=== PATIENT | male | born 1950 | race Caucasian/White ===

== ENCOUNTER → 2023-07-26 10:18 | Outpatient (REF) | payer MEDICARE, SELFPAY | LOC: DHCBC MAIN 10:18 | PROVIDERS: ATTENDING PHYSICIAN Internal Medicine; FAMILY PHYSICIAN Physician Assistant | DX: R06.09 Other forms of dyspnea (principal) | CPT/HCPCS: 93306 ==

== ENCOUNTER → 2023-09-26 13:38 | Outpatient (REF) | payer MEDICARE, SELFPAY | LOC: HWRAD 13:38 | PROVIDERS: ATTENDING PHYSICIAN Allergy & Immunology; FAMILY PHYSICIAN Physician Assistant | DX: R05.9 Cough, unspecified (principal) | CPT/HCPCS: 71046 ==

== ENCOUNTER → 2024-02-07 06:27 | Day surgery (SDC) | payer MEDICARE, SELFPAY ==
[2024-02-07 07:55] LABS: Glucose - Point of Care 167 mg/dl (70-99)
== END ==
LOC: GI 06:27
PROVIDERS: ATTENDING PHYSICIAN Internal Medicine Gastroenterology
DX: Z12.11 Encounter for screening for malignant neoplasm of colon (principal); D12.3 Benign neoplasm of transverse colon; D12.2 Benign neoplasm of ascending colon; K63.5 Polyp of colon; K62.1 Rectal polyp; K44.9 Diaphragmatic hernia without obstruction or gangrene; K31.7 Polyp of stomach and duodenum; K29.50 Unspecified chronic gastritis without bleeding; K20.80 Other esophagitis without bleeding; Z86.0100 Personal history of colon polyps, unspecified
CPT/HCPCS: 45385; 45380; 43239; 88305; 82962; 88342

== ENCOUNTER 2024-08-03 23:41 | Inpatient (IN) | payer MEDICARE, SELFPAY ==
[2024-08-03 14:00] VITALS: BP 132/53
[2024-08-03 14:17] LABS: % Basophils 0.4 % (0-2); % Eosinophils 0.8 % (0-6); % Immature Granulocytes 0.6 % (0-0.5); % Lymphocytes 7.7 % (20.5-51.1); % Monocytes 11.3 % (1.7-9.3); % Neutrophils 79.2 % (42.2-75.2); Absolute Lymphocytes 0.4 10^3/uL (1.2-3.4); Absolute Monocytes 0.6 10^3/uL (0.1-0.6); Hemoglobin 11.5 g/dL (13.0-18.0); Mean Corp Hgb Conc. 37.1 g/dL (33.0-37.0); Mean Corpuscular Hgb 34.2 pg (27.0-31.0); Mean Corpuscular Volume 92.3 fL (80.0-94.0); Nucleated Red Blood Cells % 0 % (-); Platelet Count 111 10^3/uL (130-400); Red Blood Cell Count 3.36 10^6/uL (4.70-6.10); Red Cell Dist. Width 13.2 % (11.5-14.5); White Blood Cell Count 5.1 10^3/uL (4.8-10.8)
[2024-08-03 14:31] LABS: ALT (SGPT) 19 U/L (0-50); AST (SGOT) 30 U/L (17-59); Albumin 4.1 g/dl (3.5-5.0); Alkaline Phosphatase 42 U/L (38-126); Blood Urea Nitrogen 15 mg/dl (9-20); Carbon Dioxide 29 mmol/L (22-30); Chloride 95 mmol/L (98-107); Glucose 174 mg/dl (70-99); Lipase 90 U/L (23-300); Potassium 3.6 mmol/L (3.5-5.1); Sodium 132 mmol/L (135-145); Total Bilirubin 1.2 mg/dl (0.2-1.3); Total Protein 5.9 g/dl (6.3-8.2); eGFR > 60.00
--- NOTE | 2024-08-03 19:34 | ED.GENMED ---
History of Present Illness
General
Chief Complaint: Abdominal Symptoms
Source: patient
Exam Limitations: none
Time Seen by Provider: 08/03/24 18:35
Nursing documentation reviewed up to this point in time: agreed with
History of Present Illness
History of Present Illness:
Patient is a 73-year-old male with history asthma, hypertension presenting to the emergency department with abdominal pain and fever x 3 days. Patient states that onset of fever and abdominal pain was Saturday night and has been relatively persistent
since. He reports temperatures ranging from 100-104 throughout the weekend. He also reports a gnawing pain in his upper abdomen. Patient feels generally unwell and very tired. He denies any headache, sore throat, cough, or other URI symptoms.
He denies any vomiting, diarrhea/constipation, or urinary symptoms. He denies any chest pain or shortness of breath. He denies any known bug bites or rashes. He has no known sick contacts.
Patient was seen by his primary care provider today where he was referred to the emergency department for further evaluation. He was reportedly negative for both COVID and influenza at his primary care office today.
Patient reports he does have a history of a gastric ulcer and acid reflux and has been taking Celebrex recently for spinal stenosis.
Review of Systems
Review of Systems
Allergies reviewed?: Yes
All Other Systems: ROS reviewed and negative except as documented in HPI and ROS
Phy Exam
Physical Exam
Physical Exam:
Vitals: Patient's vital signs are stable. Temp 99.1
General: Patient is in no apparent distress
Skin: Warm and dry, no rashes or lesions
Head: Normocephalic, atraumatic
Eyes: Sclera nonicteric.
Throat: Protecting airway
Neck: Normal ROM, no cervical spine tenderness, no meningismus
Cardiac: Regular rate and rhythm, no murmurs.
Pulm: Normal respiratory effort, no wheezes, rales, rhonchi heard on exam.
Abdomen: Abdomen soft. Mild tenderness in epigastric region without rebound tenderness or guarding.
Extremities: No evidence of cyanosis or edema. Palpable DP pulses bilaterally
Neuro: AAOx3. Grossly intact.
Psychiatric: Normal affect.
Course
Orders/Labs/Results
Orders:
Orders
08/03/24 14:04
Electrocardiogram (*1) Urgent
Reason for Study: Abdominal Pain
08/03/24 14:05
EKG- Treatment ONCE
08/03/24 14:10
Complete Blood Count/With Diff Urgent
Comprehensive Metabolic Panel Urgent
Lipase Urgent
08/03/24 18:53
0.9% Sodium Chloride 500 ml [Nss] 500 ml IV BOLUS
08/03/24 18:54
CT Abd/pelvis W Iv Cont Urgent
Comment:
Reason For Exam: fever, abdominal pain
Acetaminophen [Tylenol] 650 mg PO NOW STA
CR Chest - 2 Views Urgent
Comment:
Reason For Exam: fever
08/03/24 20:04
Lactic Acid Q4H
Comment: CANCEL 2nd LACTIC ACID IF 1st LACTIC ACID IS LESS THAN 2
Lyme Progressive Urgent
Urinalysis Reflex To Culture Urgent
Date Specimen was Collected: 08/03/24
Time Specimen was Collected: 19:08
Urine Microscopic Reflex Cult Urgent
Blood Culture Q30M
JOANNA Source: Blood/Venous
Specimen Description:
Blood Culture Q30M
JOANNA Source: Blood/Venous
Specimen Description:
08/03/24 23:03
Add On - Microbiology Urgent
Tests Added?: urine culture
08/03/24 23:14
COVID-19 Antigen Stat
Source: Nasal Swab
Influenza A+B Rapid Molecular Stat
JOANNA Source: Nasal Swab
Specimen Description:
08/03/24 23:30
Admit/Transfer Patient As Directed
Co-Sign Provider:
Level of Care: Inpatient admission
Assign to:: Medical/Surgical
Physician / Group: CARMELO
Diagnosis: FEVER
Reason for Hospitalization: FEVER
Expected length of stay greater than two midnights?: Yes
ELOS- Estimated Length of Stay in days: 3
I certify the patient meets the requirements for IP care: Yes
08/03/24 23:31
Code Status As Directed
Resuscitation Status: Full Code
PRN Pain Medication Management As Directed
May give lesser potent ordered pain med per pt: Yes
preference::
Protocol:: Medication orders for pain may be administered in a
manner that supports deferring to patient preference
when the pt is:
- Requesting an ordered lesser potent pain medication.
Least to most potent pain medications are defined
as: acetaminophen < NSAID < tramadol < opioids
(morphine, oxycodone, hydromorphone).
- Requesting a lesser dose of the same medication IF
ORDERED.
- Requesting a less intrusive route of administration
if both routes are prescribed by the provider (PO <
IV).
08/04/24 00:39
Acetaminophen [Tylenol] 650 mg PO Q4HPRN PRN
Bisacodyl [Dulcolax] 10 mg RECTAL [id number] PRN
Dextrose 50%-Water [Dextrose 50% Syringe] 12.5 grams IV [id number] PRN
Docusate W/Senna [Senokot-S] 1 tablet PO BIDPRN PRN
Glucagon [GlucaGen] 1 mg IM PRN PRN
HydrALAZINE [Apresoline] 10 mg IV Q4HPRN PRN
Polyethylene Glycol Powder [Miralax] 17 grams PO DAILYPRN PRN
VANCOMYCIN Pharmacy to Dose [VANCOCIN Pharmacy to Dose] 1 each Pharmacy To Prepare [Call Pharmacy To Prepare] 0 ml IV PER PROTOCOL
08/04/24 00:39
Activity As Directed
Activity Level: As Tolerated
Bedside Glucose Monitoring As Directed
Frequency: AC&HS
Additional Instructions:: Change to q6h if pt on TPN, tube feeding or not eating
Vital Signs As Directed
Frequency: Per unit guidelines
DX Deep Vein Thrombosis Video Routine
08/04/24 Breakfast
1800 calorie (15 carb) Diabetic
Basic Metabolic Panel IN AM
Complete Blood Count/No Diff IN AM
Glycohemoglobin (HgbA1c) IN AM
08/04/24 07:30
Insulin Aspart Corrective Low [Novolog Flexpen-Low Resistance] See Protocol SC AC
08/04/24 14:00
LevoFLOXacin 500 MG/100 ML [Levaquin] 500 mg in 100 ml IV Q24H
08/04/24 18:00
Enoxaparin Sodium [Lovenox] 40 mg SC QPM
08/05/24 06:00
Basic Metabolic Panel IN AM
Complete Blood Count/No Diff IN AM
08/06/24 06:00
Complete Blood Count/No Diff IN AM
Abnormal Lab Results
08/03/24 08/03/24
14:10 20:04
RBC 3.36 L 10^6/uL
(4.70-6.10)
Hgb 11.5 L g/dL
(13.0-18.0)
Hct 31.0 L %
(39.0-52.0)
MCH 34.2 H pg
(27.0-31.0)
MCHC 37.1 H g/dL
(33.0-37.0)
Plt Count 111 L 10^3/uL
(130-400)
Absolute Lymphs (auto) 0.4 L 10^3/uL
(1.2-3.4)
Immature Gran % 0.6 H %
(0-0.5)
Neutrophils % 79.2 H %
(42.2-75.2)
Lymphocytes % 7.7 L %
(20.5-51.1)
Monocytes % 11.3 H %
(1.7-9.3)
Sodium 132 L mmol/L
(135-145)
Chloride 95 L mmol/L
(98-107)
Glucose 174 H mg/dl
(70-99)
Total Protein 5.9 L g/dl
(6.3-8.2)
Urine Ketones 1+ A
(Negative)
Urine Albumin (Reflex) 1+ A
(Neg - Trace)
08/03/24 14:10
08/03/24 14:10
Vital Signs
Initial and Last Documented VS:
Initial Vital Signs
Temp Pulse Resp BP Pulse Ox
99.1 F 73 16 132/53 98
08/03/24 14:00 08/03/24 14:00 08/03/24 14:00 08/03/24 14:00 08/03/24 14:00
Last Documented Vital Signs
Temp Pulse Resp BP Pulse Ox
99.1 F 78 16 170/62 98
08/03/24 14:00 08/04/24 00:25 08/04/24 00:25 08/03/24 22:00 08/04/24 00:25
MDM/Problems Addressed
Differential Diagnosis Includes:
Not limited to: Viral illness, cystitis, pyelonephritis, bacteremia, pancreatitis, etc.
MDM/Problems Addressed:
73-year-old male presenting with fever of unknown origin and abdominal pain for 3 days. No vomiting, cough, diarrhea, urinary symptoms. No recent rashes or bug bites. Vital stable with temp of 99.1 F here. Physical exam as above. Patient in no
apparent distress. Heart regular rate and rhythm. His lungs are clear bilaterally. Abdomen is soft with mild tenderness in epigastric region. Otherwise exam unremarkable. Differential broad. Apparently viral studies negative at PCP office.
Will check labs, urine. Will send Lyme. Will check blood cultures. Will obtain chest x-ray and abdominal CT. Tylenol and fluids. Will closely monitor and reassess.
Update: CBC significant for mild anemia and thrombocytopenia. Chemistry without acute abnormalities. CT scan shows findings of possible cystitis/signs of ascending UTI although urinalysis shows no evidence of infection. Ultimately�workup in
emergency department negative. Patient remained stable and afebrile. However�given age, history of very elevated temperature, and possible findings of cystitis on CT scan�offered patient admission for IV antibiotics pending blood and urine
cultures. Will start patient on IV ciprofloxacin given Ceftin allergy to cover for possible UTI. Patient accepted to hospital service in stable condition. Case discussed with attending physician.
Chronic conditions affecting care:
Hypertension
Acute Exacerbation and/or Progression of Chronic Illness:
Acutely hypertensive
*Radiology
Radiology exam reviewed: preliminary read by ED provider (Chest x-ray reviewed by me-no acute abnormality) and radiology read reviewed
*Pulse Oximetry
Patient hypoxic: no
*EKG
Interpreted by ED Provider?: Yes
EKG Intrepretation Date: 08/03/24
Interpretation: normal
Comparison EKG: no comparison EKG present
Heart Rate: 69
Rate: normal
Rhythm: sinus
Carpenter: normal axis
Interval: normal QT interval
QRS Pattern: normal QRS
Ischemia: no ischemia
*Returner Interpretation
Rate: normal
Interpretation: normal
Heart Rate: 76
Rhythm: sinus
*Critical Care Note
Total Time (30-74mins, 75-104mins- exclusive of procedures): Not Applicable
Patient Management
Discussion with other providers: Hospitalist
Escalation/DeEscalation of care consider admission/obs:
Admit for IV antibiotics pending urine and blood cultures
ED Attending Note
-
Portions of this chart may have been created with voice recognition software.� Occasional wrong word or��sound alike� substitutions may have occurred due to the inherent limitations of voice recognition software.
Discharge Plan
Departure
Patient Disposition: Admit
Date of Disposition: 08/03/24
Time of Disposition: 23:02
Presentation/result/management discussed w/ accepting MD/DO: Hospitalist
Discharge Problem:
Fever of unknown origin (FUO), Abdominal pain
Interventions
Interventions:
*Risk Screen - Suicide Last Done: 08/03/24 14:03
*General Assessment Last Done: 08/03/24 20:03
*Neglect/Abuse Screening Last Done: 08/03/24 14:03
*ED- Fall Risk Assessment Last Done: 08/03/24 20:03
*ED COVID-19 Vaccine History Last Done: 08/03/24 20:03
FI-Qhcluq-Jehkkucbwi Assessment Last Done: 08/04/24 00:21
[2024-08-03 20:03] VITALS: BMI 31.5
[2024-08-03] MEDS: TYLENOL 650 MG PO (20:10)
[2024-08-03] MEDS: NSS 500 IV (20:10)
[2024-08-03 20:20] VITALS: BP 183/84
[2024-08-03 20:44] LABS: Lactic Acid 0.9 mmol/L (0.7-2.0)
[2024-08-03 21:36] VITALS: BP 188/76
[2024-08-03 21:55] LABS: Urine Albumin 1+ (Neg - Trace); Urine Bilirubin Negative (Negative); Urine Character Clear (Clear); Urine Color Yellow; Urine Glucose Negative (Negative); Urine Ketone 1+ (Negative); Urine Leukocyte Negative (Negative); Urine Nitrite Negative (Negative); Urine Occult Blood Negative (Negative); Urine Specific Gravity 1.005 (<1.030); Urine Urobilinogen Negative (Neg - 1+)
[2024-08-03 22:00] VITALS: BP 170/62
[2024-08-03 22:24] LABS: Urine Red Blood Cell 0-2 /HPF (0-2); Urine Squamous Cell 0-2 /LPF (Few); Urine White Cell 0-2 /HPF (0-5)
--- NOTE | 2024-08-03 23:08 | HPS.HSE ---
Family Physician
-
Family Physician: Moreno Mahmood
Chief Complaint
-
fever
History of Present Illness
73-year-old with past medical history for hypertension, hyperlipidemia, type 2 diabetes, asthma presented to us with fever since Saturday night. Patient had a temp of 100.4 on Saturday, Saturday, Saturday night. Patient was taking Advil. His fever
persisted somewhere between 100-101. Patient stated some headache. denied chills. denied chest pain, sob, congestion. denied n/v/d. denied dysuria or hematuria.
UA negative. Chest x-ray with no acute disease. CT with impression of Mild diffuse thickening of the urinary bladder wall and mild urinary bladder distention (either cystitis or chronic urinary bladder outlet obstruction).
2. Mild retroperitoneal edema around the ureters which could be secondary to ascending urinary tract infection. Patient received Tylenol, Cipro, normal saline and. Blood culture sent from ER. Admitted for further manage
Medical History
Past Medical History
Past Medical History: Reports Other
Additional Past Medical History:
HTN
DM peripheral neuropathy
glaucoma
type 2 DM
hyperlipidemia
asthma
depression
DAISY
AVM
Chavarria esophagus
anemia
GERD
Past Surgical History: Reports Other
Additional Past Surgical History:
cholecystectomy
Social History
Tobacco: Non-smoker
Alcohol: Daily (2 glasses of wine)
Drug: None
Personal:
Living: With Family
Family History
Family History: Not pertinent
Allergies / Home Medications
Allergies reflects when Allergies were last updated in [employer].
Home Medications with original date entered in [employer]
Allergy/Medication List:
Allergies
Allergy/AdvReac Type Severity Reaction Status Date / Time
cefuroxime [From Ceftin] Allergy Unknown Verified 08/03/24 14:04
Review of Systems
-
Constitutional: Reports Fever
EENT: Reports No Symptoms
Respiratory: Reports No Symptoms
Cardiac: Reports No Symptoms
Abdomen/GI: Reports Abdominal Pain
: Reports No Symptoms
Musculoskeletal: Reports No Symptoms
Skin: Reports No Symptoms
Neurological: Reports No Symptoms
Endocrine: Reports No Symptoms
Hematologic/Lymphatic: Reports No Symptoms
Psych: Reports No Symptoms
Physical Exam
Vital Signs
Vital Signs
Temp Pulse Resp BP Pulse Ox
99.1 F 66 19 170/62 97
08/03/24 14:00 08/03/24 22:15 08/03/24 22:00 08/03/24 22:00 08/03/24 22:15
Physical Exam
General: Well Developed, Well Nourished and No Apparent Distress
HEENT: NormoCephalic, Moist mucous membranes and Atraumatic
Respiratory: Clear
Cardiac: S1/S2 and Regular Rhythm; No Murmur or Rub
GI: Soft, Non Tender, Non Distended and Normal Bowel Sounds; No Organomegaly
Rectal: Deferred by Provider
Musculoskeletal: No Clubbing, No Cyanosis and No Edema
Skin: No Rash
Neuro: AO x 3 and Nonfocal/grossly intact
Psych: Calm
Laboratory Results
-
08/03/24 14:10
08/03/24 14:10
Laboratory Results
Lactic Acid Cancelled 08/03/24 23:00
Total Bilirubin 1.2 mg/dl (0.2-1.3) 08/03/24 14:10
AST 30 U/L (17-59) 08/03/24 14:10
ALT 19 U/L (0-50) 08/03/24 14:10
Alkaline Phosphatase 42 U/L (38-126) 08/03/24 14:10
Lipase 90 U/L (23-300) 08/03/24 14:10
Data Reviewed
-
Diagnostic Radiology: Report Reviewed by me
CT Scan: Report Reviewed by me
Lab Data: Labs Reviewed by me
Impression/Plan
-
#fever unclear origin
-chest x ray negative
-obtain COVID and FLU
-blood culture sent from ER
-UA negative
-lyme test pending
-iv vanco and Levaquin
#abdominal pain unclear cause
-CT abdomen pelvis with the impression of Mild diffuse thickening of the urinary bladder wall and mild urinary bladder distention (either cystitis or chronic urinary bladder outlet obstruction).
2. Mild retroperitoneal edema around the ureters which could be secondary to ascending urinary tract infection.
3. Minimal ascites.
4. Mild to moderate diffuse hepatic steatosis.
5. Mild hepatomegaly.
6. Moderate splenomegaly.
7. Previous cholecystectomy.
8. Mild to moderate colonic diverticulosis.
9. Severe discogenic degenerative disease at L3/L4.
10. Severe bilateral facet joint arthrosis at L5/S1.
-patient denied any UA symptoms
-CTM
#hyponatremia likely pseudo in the setting of hyperglycemia
-na 132, corrected sodium is 134
-ctm
# Essential hypertension
- Patient is on hydralazine, Coreg, valsartan and terazosin as outpatient but he does not remember the dosage
- to call when she gets home
-will add hydralazine meanwhile.
# Hyperlipidemia
- On Zetia and atorvastatin
#TYPE 2 dm
-Hold metformin
-sliding scale
-CHO diet
# DVT prophylaxis
- Lovenox subcu
# CODE STATUS
- full code
--- NOTE | 2024-08-03 23:46 | W.PN.UPDATE ---
Update Note
Progress Note Update
This is an addendum to the H&P written by Chelsie Valadez on 08/03/2024. Patient seen and examined independently with [facility].
73-year-old male past medical history of diabetes, hypertension, hyperlipidemia, asthma, depression, anemia, GERD, spinal stenosis, presenting with fever since 3 days with abdominal pain. Some generalized joint pains. No vomiting or diarrhea or
change in bowel movements. No urinary symptoms or flank pain. No external hardware.
Labs unremarkable apart from mild thrombocytopenia. Monocytes are elevated.
Urinalysis normal. Chest x-ray unremarkable. CT abdomen shows mild diffuse thickening of the urinary bladder wall and mild urinary bladder distention, mild retroperitoneal edema around the ureters suggestive of ascending urinary tract infection,
minimal ascites, mild to moderate diffuse hepatic steatosis, mild hepatomegaly, moderate splenomegaly.
Fever of unknown etiology. Patient with abdominal pain with CT scan suggesting urinary tract infection although urinalysis negative. Unclear if patient has a chronic bacterial infection or hematologic source of fever that could explain
splenomegaly since unlikely patient would have cirrhosis.
Lyme's testing pending. Blood cultures pending. Vancomycin/Levaquin for now. Consider ID.
[2024-08-03 23:49] VITALS: BP 192/75
[2024-08-04] VITALS (14 sets, daily range): BP systolic 151–185; BP diastolic 59–97; BMI 30.6
[2024-08-04] MEDS: CIPRO 400 MG 200 IV (00:56)
[2024-08-04 01:20] LABS: COVID-19 Antigen Negative (Negative)
[2024-08-04] MEDS: VANCOCIN 540 MG IV (01:57)
[2024-08-04 06:41] LABS: Blood Urea Nitrogen 10 mg/dl (9-20); Calcium 8.7 mg/dl (8.4-10.2); Carbon Dioxide 30 mmol/L (22-30); Chloride 99 mmol/L (98-107); Estimated Creatinine Clearance 89 ml/min; Glucose 128 mg/dl (70-99); Potassium 3.3 mmol/L (3.5-5.1); Sodium 135 mmol/L (135-145); eGFR > 60.00
[2024-08-04 08:08] LABS: Glucose - Point of Care 143 mg/dl (70-99)
--- NOTE | 2024-08-04 08:28 | PHA.VAN.IN ---
Assessment
- Assessment
Renal Function: Appears similar to baseline
Concomitant Antimicrobials: levofloxacin
AUC Dosing Plan
- Dosing Variables
Dosing Weight (kg): 91
Dosing CrCl (ml/min): 89
Vd coefficient (L/kg): 0.7
- Empiric Dosing
Initial / Loading Dose: 2000mg - 5/6 01:57
Maintenance Regimen: Vanc 1000mg Q12H starting at 1800
Estimated AUC (mcg*h/mL): 454
Estimated Peak (mcg*h/mL): 27.2
Estimated Trough (mcg/ml): 12.4
Estimated Half Life (H): 9.7
- Monitoring
No levels ordered at this time: consider levels in next few days
Pharmacokinetics Vancomycin I
- -
Patient Age: 73
Patient Sex: Male
Vancomycin Day #: 1
Indication: Other
Requesting Provider: Susan Valadez
Pertinent Antimicrobial Allergies:
cefuroxime - unknown
Height / Weight:
Height 5 ft 7 in
Actual Weight 91.2 kg
Pertinent Past Medical History: BMI ~31.5, DM 2
- Vital Signs / Lab Results
Temp Pulse Resp BP Pulse Ox
97.9 F 64 16 169/80 97
08/04/24 07:00 08/04/24 06:30 08/04/24 06:30 08/04/24 06:30 08/04/24 06:30
Lab Results - Hematology
08/03/24
14:10
WBC 5.1
Lab Results - Chemistry
08/03/24 08/04/24
14:10 06:00
BUN 15 10
Creatinine 0.9 0.8
Estimated Creat Clear 89
Albumin 4.1
08/03/24 08/03/24
20:04 23:00
Lactic Acid 0.9 Cancelled
Lab Results - Urine
08/03/24
20:04
Urine Nitrite (Reflex) Negative
Leukocyte Esterase Rfl Negative
Urine WBC (Reflex) 0-2
Ur Squamous Epith Cells 0-2
Microbiology Results
08/04/24 00:35 Influenza Types A & B ([facility]) - Final
Nasal Swab Negative for Influenza A & B, NAAT
Negative results must be combined with clinical observations
and patient history.
Nucleic Acid Amplification test (NAAT)performed on the
[employer] platform.
[2024-08-04] MEDS: NOVOLOG FLEXPEN-LOW RESISTANCE SC ×3 (08:48→17:31)
[2024-08-04 08:58] LABS: Hematocrit 28.9 % (39.0-52.0); Hemoglobin 10.8 g/dL (13.0-18.0); Mean Corp Hgb Conc. 37.4 g/dL (33.0-37.0); Mean Corpuscular Volume 90.9 fL (80.0-94.0); Mean Platelet Volume 10.2 fL (7.4-10.4); Platelet Count 97 10^3/uL (130-400); Red Blood Cell Count 3.18 10^6/uL (4.70-6.10); Red Cell Dist. Width 13.2 % (11.5-14.5); White Blood Cell Count 3.2 10^3/uL (4.8-10.8)
[2024-08-04 10:01] LABS: % Basophils 0.6 % (0-2); % Eosinophils 3.1 % (0-6); % Immature Granulocytes 0.6 % (0-0.5); % Lymphocytes 13.8 % (20.5-51.1); % Monocytes 19.3 % (1.7-9.3); % Neutrophils 62.6 % (42.2-75.2); Absolute Eosinophils 0.1 10^3/uL (0-0.7); Absolute Lymphocytes 0.5 10^3/uL (1.2-3.4); Absolute Monocytes 0.6 10^3/uL (0.1-0.6); Absolute Neutrophils 2.1 10^3/uL (1.4-6.5)
[2024-08-04 10:02] LABS: Nucleated Red Blood Cells % 0 % (-)
[2024-08-04 11:55] LABS: Hepatitis A Antibody, Total Negative (Negative); Hepatitis B Core Ab, Total Negative (Negative); Hepatitis B Surface Antibody Negative
[2024-08-04 12:08] LABS: Folate > 20.0 ng/ml (2.76-20); Vitamin B12 710 pg/ml (239-931)
[2024-08-04] MEDS: APRESOLINE 10 MG IV (12:17)
--- NOTE | 2024-08-04 12:50 | W.PN.HOSP.TC ---
Today's Communication/Plan
-
Assessment / Plan
Assessment / Plan
NAD
Scleral Anicteric
MMM
No JVD
CTABL
RRR, S1/S2
Soft, NT, ND, BS+, protuberant abdomen
Warm, Dry
AAOx3
Calm
Fever, unclear etiology, unable to identify source, no further fevers though on antibiotics.
Could be infectious being bacterial versus viral. Blood cultures urine culture pending.
Flu negative. COVID-negative
Could be something more insidious process such as hematologic malignancy as he is thrombocytopenic and splenomegaly though there is evidence of hepatic steatosis with mild ascites.
Follows with outpatient key cutter unclear as to why states for anemia however then tells me he may require IVIG
Bicytopenia with normocytic anemia and thrombocytopenia
Do not have outpatient labs to review to see if this is an acute finding or chronic
Check peripheral smear, B12 folate hep C
No evidence of a protein gap to suspect multiple myeloma however this does not rule out MGUS in a patient who is older than 65 with bicytopenia
Hepatic steatosis with splenomegaly
Outpatient GI follow-up would likely benefit from FibroSure study
Diabetes
Accu-Chek sliding scale hold metformin carb controlled diet goal blood glucose 140-180
Hypertension
Continue antihypertensive
BPH
Continue terazosin
Asthma
Continue montelukast and inhalers
Hyperlipidemia
Continue Zetia statin
Anticipated Discharge: 24 - 48 hours
Subjective/Interval History
-
Date of Service: August 04, 2024
Seen and examined. No new complaints. No acute overnight events.
No further fevers reported
Questioning morning medication
Objective Data
-
Labs:
Laboratory Results
08/04/24 08/04/24
06:00 06:01
WBC 3.2 L
Hgb 10.8 L
Hct 28.9 L
Plt Count 97 L
Sodium 135
Potassium 3.3 L
Chloride 99
Carbon Dioxide 30
BUN 10
Creatinine 0.8
Glucose 128 H
Calcium 8.7
Vital Signs:
Vital Signs
Temp Pulse Resp BP Pulse Ox
98.5 F 68 15 179/81 97
08/04/24 11:00 08/04/24 11:15 08/04/24 11:15 08/04/24 11:13 08/04/24 11:15
[2024-08-04 12:59] LABS: Glucose - Point of Care 187 mg/dl (70-99)
[2024-08-04] MEDS: NORVASC 10 MG PO (13:02)
--- NOTE | 2024-08-04 13:10 | PTCARENOTE ---
Received patient from ED at 1310. Patient AAOx3, ambulated from stretcher to bed with cane and a steady gait.
[2024-08-04] MEDS: LEVAQUIN 100 IV (14:37)
[2024-08-04] MEDS: DIOVAN 320 MG PO (14:37)
[2024-08-04] MEDS: HYTRIN 10 MG PO (14:50)
[2024-08-04] MEDS: ORETIC 25 MG PO (14:50)
--- NOTE | 2024-08-04 15:18 | CON.ONC ---
Impression
Impression
Chronic pancytopenia, followed by hematology on a yearly basis
Admission for fever, unclear etiology
Mild splenomegaly on CT scan
'Fatty liver' seen on CT scan
Thickening of bladder and ureters seen on CT scan
Diabetes
Plan
Plan
His pancytopenia appears stable. It would be reasonable for him to follow-up with his behavioral scientist again next year.
I am concerned about 'fatty liver'. He was told quite a few years ago that his liver appeared fatty when his gallbladder was removed. However, this does have the potential to progress to cirrhosis. I have recommended that he see a liver
specialist. Some preliminary studies suggest that the Ozempic type drugs may be of benefit. The spleen is also mildly enlarged, which could account for some of his pancytopenia.
His collecting system is also abnormal by CT scan. I have recommended that he see a urologist.
In looking at the entire CT report, he seems to have a little bit of edema in many places within the abdomen and pelvis. In addition, his eyeballs strike me as being a little edematous. I do not think he is hypothyroid, but I will check studies.
Patient History
History of Present Illness
Consult from hospitalist service regarding pancytopenia
This 73-year-old man was admitted with fever. Over the weekend his temperature was as high as 104 degrees. He ultimately came to the emergency room and has been placed on empiric antibiotics. However, cultures remain negative. Indeed, his
urinalysis looks quite clean. CT scan shows many mild abnormalities including possible fatty liver, mild splenomegaly, thickened wall of the stomach and duodenum, thickened ureters, thickened bladder wall, and small amount of pelvic ascites. He
also has a mild pancytopenia, but has been followed by Dr. Curtis for several years now with no real change in his counts.
Past-Medical/Surgical History
As per problem list below.
Social history: He says he has 2 glasses of wine at night. He does not smoke.
Family history is noncontributory.
Patient Medication
�Medication �Instructions �Recorded �Confirmed �Last Taken �Type
acetaminophen 325 mg tablet 650 mg PO Q6HPRN PRN mild pain 08/04/24 08/04/24 08/03/24 History
(Tylenol)
amlodipine 10 mg tablet 10 mg PO DAILY 08/04/24 08/04/24 08/03/24 History
ascorbic acid (vitamin C) 500 mg 500 mg PO DAILY 08/04/24 08/04/24 08/03/24 History
tablet (Vitamin C)
atorvastatin 20 mg tablet 20 mg PO HS 08/04/24 08/04/24 08/02/24 History
budesonide-formoterol HFA 160 2 puff inhalation R BID 08/04/24 08/04/24 08/03/24 History
mcg-4.5 mcg/actuation aerosol
inhaler (Symbicort)
calcium 500 mg (as 1 tab PO DAILY 08/04/24 08/04/24 08/03/24 History
carbonate)-vitamin D3 10 mcg (400
unit) tablet (Calcium 500 + D)
carvedilol 25 mg tablet 25 mg PO BID 08/04/24 08/04/24 08/03/24 History
celecoxib 200 mg capsule (Celebrex) 200 mg PO DAILYPRN PRN mild pain 08/04/24 08/04/24 07/31/24 History
ezetimibe 10 mg tablet (Zetia) 10 mg PO HS 08/04/24 08/04/24 08/02/24 History
hydralazine 100 mg tablet 100 mg PO TID 08/04/24 08/04/24 08/03/24 History
ibuprofen 200 mg tablet (Advil) 400 mg PO Q8HPRN PRN fever 08/04/24 08/04/24 08/02/24 History
metformin 500 mg tablet 500 mg PO BID 08/04/24 08/04/24 08/03/24 History
montelukast 10 mg tablet 10 mg PO HS 08/04/24 08/04/24 08/02/24 History
omega 4-zsj-rvq-fish oil 1,000 mg 1 cap PO DAILY 08/04/24 08/04/24 08/03/24 History
(120 mg-180 mg) capsule (Fish Oil)
omeprazole 20 mg tablet,delayed 20 mg PO DAILY 08/04/24 08/04/24 08/03/24 History
release
sertraline 100 mg tablet 200 mg PO DAILY 08/04/24 08/04/24 08/03/24 History
terazosin 10 mg capsule 10 mg PO DAILY 08/04/24 08/04/24 08/03/24 History
therapeutic multivitamin 1 tab PO DAILY 08/04/24 08/04/24 08/03/24 History
valsartan 320 1 tab PO DAILY 08/04/24 08/04/24 08/03/24 History
mg-hydrochlorothiazide 25 mg tablet
Active Medications
Generic Name Dose Route Start Last Admin
Trade Name Freq PRN Reason Stop Dose Admin
Acetaminophen 650 mg 08/04/24 00:39
Acetaminophen 325 Mg Tablet PO 09/01/24 00:38
Q4HPRN PRN
mild pain/LIRIANO/temp> 100.4F
Amlodipine Besylate 10 mg 08/04/24 12:00 08/04/24 13:02
Amlodipine 10 Mg Tablet PO 09/01/24 11:59 10 mg
DAILY ESTEE Administration
Atorvastatin Calcium 20 mg 08/04/24 22:00
Atorvastatin (Lipitor) 20 Mg Tablet PO 09/01/24 21:59
HS ESTEE
Bisacodyl 10 mg 08/04/24 00:39
Bisacodyl 10 Mg Rectal Suppository RECTAL 09/01/24 00:38
[id number] PRN
constipation
Carvedilol 25 mg 08/04/24 20:00
Carvedilol 25 Mg Tablet PO 09/01/24 19:59
BID ESTEE
Dextrose 12.5 grams 08/04/24 00:39
Dextrose 50% (0.5 Grams/Ml) 50 Ml Syringe IV 09/01/24 00:38
[id number] PRN
hypoglycemia
Protocol
Enoxaparin Sodium 40 mg 08/04/24 18:00
Enoxaparin Sodium 40 Mg/0.4 Ml Syringe SC 09/01/24 17:59
QPM ESTEE
Glucagon 1 mg 08/04/24 00:39
Glucagon 1 Mg Vial IM 09/01/24 00:38
PRN PRN
hypoglycemia
Protocol
Hydralazine HCl 10 mg 08/04/24 00:39 08/04/24 12:17
Hydralazine 20 Mg/Ml Vial IV 09/01/24 00:38 10 mg
Q4HPRN PRN Administration
hypertension
Hydralazine HCl 100 mg 08/04/24 16:00
Hydralazine 50 Mg Tablet PO 09/01/24 15:59
TID ESTEE
Hydrochlorothiazide 25 mg 08/04/24 14:00 08/04/24 14:50
Hydrochlorothiazide 25 Mg Tablet PO 09/01/24 13:59 25 mg
DAILY ESTEE Administration
Levofloxacin/Dextrose 500 mg in 100 mls @ 100 mls/hr 08/04/24 14:00 08/04/24 14:37
Levaquin IV 100 mls
Q24H ESTEE Administration
Vancomycin HCl 1 gram in 200 mls @ 200 mls/hr 08/04/24 18:00
Vancocin IV
Q12H ESTEE
Protocol
Insulin Aspart 0 units 08/04/24 07:30 08/04/24 13:03
Insulin Aspart Low Resistance 300 Units/3 Ml Pen.Injctr SC 09/01/24 07:29 Not Given
AC ESTEE
Protocol
Polyethylene Glycol 17 grams 08/04/24 00:39
Polyethylene Glycol Powder 17 Grams Packet PO 09/01/24 00:38
DAILYPRN PRN
constipation
Senna/Docusate Sodium 1 tablet 08/04/24 00:39
Docusate W/Senna (Gunjan-Colace) Tablet PO 09/01/24 00:38
BIDPRN PRN
constipation
Sodium Chloride 0 flush 08/04/24 01:00
Sodium Chloride 0.9% (Flush) Syringe IV 09/01/24 00:59
PER PROTOCOL ESTEE
Terazosin HCl 10 mg 08/04/24 14:00 08/04/24 14:50
Terazosin 5 Mg Capsule PO 09/01/24 13:59 10 mg
DAILY ESTEE Administration
Valsartan 320 mg 08/04/24 14:00 08/04/24 14:37
Valsartan 160 Mg Tablet PO 09/01/24 13:59 320 mg
DAILY ESTEE Administration
Review of Systems
-
All Other Systems: Reviewed and Negative
Physical Exam
-
Physical examination shows the patient to be in no acute distress.
HEENT exam is unremarkable with the exception of some conjunctival edema.
There are no palpable nodes.
Chest is clear.
The heart is regular with a soft systolic murmur.
The abdomen is soft and nontender with no organomegaly or masses.
Extremities are unremarkable.
Neurologic is grossly intact.
Labs
Lab Results
WBC 3.2 10^3/uL (4.8-10.8) L 08/04/24 06:01
RBC 3.18 10^6/uL (4.70-6.10) L 08/04/24 06:01
Hgb 10.8 g/dL (13.0-18.0) L 08/04/24 06:01
Hct 28.9 % (39.0-52.0) L 08/04/24 06:01
MCV 90.9 fL (80.0-94.0) 08/04/24 06:01
MCH 34.0 pg (27.0-31.0) H 08/04/24 06:01
MCHC 37.4 g/dL (33.0-37.0) H 08/04/24 06:01
RDW 13.2 % (11.5-14.5) 08/04/24 06:01
Plt Count 97 10^3/uL (130-400) L 08/04/24 06:01
MPV 10.2 fL (7.4-10.4) 08/04/24 06:01
Abs Immat Gran (auto) 0.0 10^3/uL (0-0.05) 08/04/24 06:01
Absolute Neuts (auto) 2.1 10^3/uL (1.4-6.5) 08/04/24 06:01
Absolute Lymphs (auto) 0.5 10^3/uL (1.2-3.4) L 08/04/24 06:01
Absolute Monos (auto) 0.6 10^3/uL (0.1-0.6) 08/04/24 06:01
Absolute Eos (auto) 0.1 10^3/uL (0-0.7) 08/04/24 06:01
Absolute Basos (auto) 0.0 10^3/uL (0-0.2) 08/04/24 06:01
Immature Gran % 0.6 % (0-0.5) H 08/04/24 06:01
Neutrophils % 62.6 % (42.2-75.2) 08/04/24 06:01
Lymphocytes % 13.8 % (20.5-51.1) L 08/04/24 06:01
Monocytes % 19.3 % (1.7-9.3) H 08/04/24 06:01
Eosinophils % 3.1 % (0-6) 08/04/24 06:01
Basophils % 0.6 % (0-2) 08/04/24 06:01
Creatinine 0.8 mg/dL (0.7-1.3) 08/04/24 06:00
Vital Signs
Vital Signs
Temp Pulse Resp BP Pulse Ox
98.3 F 73 17 173/75 98
08/04/24 13:09 08/04/24 13:09 08/04/24 13:09 08/04/24 13:09 08/04/24 13:09
[2024-08-04 17:00] LABS: Glucose - Point of Care 129 mg/dl (70-99)
[2024-08-04] MEDS: VANCOCIN 200 IV (17:47)
[2024-08-04] MEDS: LOVENOX 40 MG SC (17:47)
[2024-08-04] MEDS: APRESOLINE 100 MG PO ×2 (17:50→21:35)
[2024-08-04] MEDS: COREG 25 MG PO (19:23)
[2024-08-04 19:55] LABS: Glucose - Point of Care 245 mg/dl (70-99)
[2024-08-04] MEDS: LIPITOR 20 MG PO (21:36)
[2024-08-05] MEDS: VANCOCIN 200 IV ×2 (06:12→17:56)
[2024-08-05 07:10] LABS: Glucose - Point of Care 187 mg/dl (70-99)
[2024-08-05 07:34] VITALS: BP 180/83
[2024-08-05] MEDS: NORVASC 10 MG PO (07:58)
[2024-08-05] MEDS: HYTRIN 10 MG PO (07:58)
[2024-08-05] MEDS: DIOVAN 320 MG PO (07:58)
[2024-08-05] MEDS: APRESOLINE 100 MG PO ×3 (07:59→21:54)
[2024-08-05] MEDS: ORETIC 25 MG PO (07:59)
[2024-08-05] MEDS: COREG 25 MG PO ×2 (07:59→19:18)
[2024-08-05 08:10] LABS: Hematocrit 31.7 % (39.0-52.0); Hemoglobin 11.8 g/dL (13.0-18.0); Mean Corp Hgb Conc. 37.2 g/dL (33.0-37.0); Mean Corpuscular Hgb 33.9 pg (27.0-31.0); Mean Corpuscular Volume 91.1 fL (80.0-94.0); Mean Platelet Volume 9.9 fL (7.4-10.4); Platelet Count 119 10^3/uL (130-400); Red Blood Cell Count 3.48 10^6/uL (4.70-6.10); Red Cell Dist. Width 13.4 % (11.5-14.5); White Blood Cell Count 4.5 10^3/uL (4.8-10.8)
[2024-08-05 08:35] LABS: Blood Urea Nitrogen 12 mg/dl (9-20); Calcium 8.9 mg/dl (8.4-10.2); Carbon Dioxide 29 mmol/L (22-30); Chloride 94 mmol/L (98-107); Estimated Creatinine Clearance 78 ml/min; Glucose 174 mg/dl (70-99); Potassium 3.3 mmol/L (3.5-5.1); Sodium 134 mmol/L (135-145); eGFR > 60.00
[2024-08-05 09:05] LABS: TSH Reflex To Free T4 4.11 uIU/ml (0.47-4.68)
--- NOTE | 2024-08-05 09:37 | PHA.VAN.FU ---
Vancomycin Assessment / Plan
- Assessment
Renal Function: Stable
WBC's are: Trending Down
In the past 24 hrs, patient has been: Afebrile
Concomitant Antimicrobials: levofloxacin 500 mg q24h
- Dosing Plan
Continue: vancomycin 1000 mg q12h
- Monitoring Plan
No level(s) ordered at this time: consider levels in next few days
MRSA Screen: Ordered per protocol (MRSA screen pending)
- Follow Up
Pharmacy will continue to follow.
Vancomycin Follow UP
- -
Patient Age: 73
Patient Sex: Male
Vancomycin Day #: 2
Indication: Other
Requesting Provider: Susan Valadez
Pertinent Antimicrobial Allergies:
cefuroxime - unknown
Height / Weight:
Height 5 ft 7 in
Actual Weight 88.649 kg
Pertinent Past Medical History: BMI ~31.5, DM 2
- Vital Signs / Lab Results
Temp Pulse Resp BP Pulse Ox
98.4 F 65 18 180/83 99
08/05/24 07:34 08/05/24 07:58 08/05/24 07:34 08/05/24 07:58 08/05/24 07:34
Lab Results - Hematology
08/03/24 08/04/24 08/05/24
14:10 06:01 07:48
WBC 5.1 3.2 L 4.5 L
Lab Results - Chemistry
08/03/24 08/04/24 08/05/24
14:10 06:00 07:48
BUN 15 10 12
Creatinine 0.9 0.8 0.9
Estimated Creat Clear 89 78
Albumin 4.1
08/03/24 08/03/24
20:04 23:00
Lactic Acid 0.9 Cancelled
Microbiology Results
08/03/24 20:04 Blood Culture - Preliminary
Blood/Venous No Growth in 24 hours- Final report to follow
08/03/24 20:04 Blood Culture - Preliminary
Blood/Venous No Growth in 24 hours- Final report to follow
08/04/24 00:35 Influenza Types A & B ([facility]) - Final
Nasal Swab Negative for Influenza A & B, NAAT
Negative results must be combined with clinical observations
and patient history.
Nucleic Acid Amplification test (NAAT)performed on the
[employer] platform.
[2024-08-05] MEDS: NOVOLOG FLEXPEN-LOW RESISTANCE 1 UNITS SC ×2 (09:38→17:57)
--- NOTE | 2024-08-05 10:01 | CM ---
Patient seen bedside.
Patient IA completed.
Patient lives with spouse in a 1 story home with 1 step to enter.
Patient has a cane, only recently stated using due to vertigo.
Patient independent prior to admission.
patient drives.
Patient denies food or housing insecurities.
patient aware of CM availability shouild needs artise.
Denies home care needs at this time.
PCP: Dr Kendall from [facility].
Pharmacy: [facility]
Plan: home no needs anticipated, will transport.
[2024-08-05 11:20] LABS: Glucose - Point of Care 245 mg/dl (70-99)
--- NOTE | 2024-08-05 11:33 | W.PN.HOSP.TC ---
Today's Communication/Plan
-
DC if Bcx remains negative for 48hours
Assessment / Plan
Assessment / Plan
NAD
Scleral Anicteric
MMM
No JVD
CTABL
RRR, S1/S2
Soft, NT, ND, BS+, protuberant abdomen
Warm, Dry
AAOx3
Calm
Fever, unclear etiology, unable to identify source, no further fevers though on antibiotics.
Could be infectious being bacterial versus viral. Blood cultures urine culture pending.
Flu negative. COVID-negative
Could be something more insidious process such as hematologic malignancy as he is thrombocytopenic and splenomegaly though there is evidence of hepatic steatosis with mild ascites.
Follows with outpatient gear machinist unclear as to why states for anemia however then tells me he may require IVIG
Bicytopenia with normocytic anemia and thrombocytopenia
Do not have outpatient labs to review to see if this is an acute finding or chronic
Check peripheral smear, B12 folate hep C
No evidence of a protein gap to suspect multiple myeloma however this does not rule out MGUS in a patient who is older than 65 with bicytopenia
Hepatic steatosis with splenomegaly
Outpatient GI follow-up would likely benefit from FibroScan study/MR Elastography
Diabetes
Accu-Chek sliding scale hold metformin carb controlled diet goal blood glucose 140-180
Hypertension
Continue antihypertensive
Hypokalemia
Replete prn
Hyponatremia
Encourage po intake
BPH
Continue terazosin
Asthma
Continue montelukast and inhalers
Hyperlipidemia
Continue Zetia statin
Anticipated Discharge: Within 24 hours
Subjective/Interval History
-
Date of Service: August 05, 2024
seen and examined. no new complaints. no acute overnight events
Objective Data
-
Labs:
Laboratory Results
08/05/24
07:48
WBC 4.5 L
Hgb 11.8 L
Hct 31.7 L
Plt Count 119 L D
Sodium 134 L
Potassium 3.3 L
Chloride 94 L
Carbon Dioxide 29
BUN 12
Creatinine 0.9
Glucose 174 H
Calcium 8.9
Vital Signs:
Vital Signs
Temp Pulse Resp BP Pulse Ox
98.4 F 65 18 180/83 99
08/05/24 07:34 08/05/24 07:58 08/05/24 07:34 08/05/24 07:58 08/05/24 07:34
I&O
08/04/24 08/05/24 08/06/24
06:59 06:59 06:59
Intake Total 880 / 880 300 / 300
Balance 880 / 880 300 / 300
[2024-08-05] MEDS: KCL 40 MEQ PO (12:17)
[2024-08-05] MEDS: NOVOLOG FLEXPEN-LOW RESISTANCE 2 UNITS SC (13:23)
[2024-08-05] MEDS: LEVAQUIN 100 IV (13:23)
[2024-08-05 15:17] VITALS: BP 166/69
[2024-08-05 16:32] LABS: Glucose - Point of Care 176 mg/dl (70-99)
[2024-08-05] MEDS: LOVENOX 40 MG SC (17:56)
[2024-08-05 19:17] VITALS: BP 173/69
[2024-08-05 21:33] LABS: Glucose - Point of Care 162 mg/dl (70-99)
[2024-08-05] MEDS: LIPITOR 20 MG PO (21:54)
[2024-08-05 23:15] VITALS: BP 157/67
[2024-08-06] MEDS: VANCOCIN 200 IV (05:53)
[2024-08-06 06:20] LABS: Hematocrit 28.9 % (39.0-52.0); Hemoglobin 10.7 g/dL (13.0-18.0); Mean Corpuscular Hgb 33.5 pg (27.0-31.0); Mean Corpuscular Volume 90.6 fL (80.0-94.0); Mean Platelet Volume 10.2 fL (7.4-10.4); Platelet Count 118 10^3/uL (130-400); Red Blood Cell Count 3.19 10^6/uL (4.70-6.10); Red Cell Dist. Width 13.3 % (11.5-14.5); White Blood Cell Count 4.4 10^3/uL (4.8-10.8)
[2024-08-06 07:00] VITALS: BP 171/79
[2024-08-06] MEDS: DIOVAN 320 MG PO (07:37)
[2024-08-06] MEDS: APRESOLINE 100 MG PO (07:38)
[2024-08-06] MEDS: ORETIC 25 MG PO (07:38)
[2024-08-06] MEDS: HYTRIN 10 MG PO (07:38)
[2024-08-06] MEDS: NORVASC 10 MG PO (07:39)
[2024-08-06] MEDS: COREG 25 MG PO (07:39)
--- NOTE | 2024-08-06 08:30 | PHA.VAN.FU ---
Vancomycin Assessment / Plan
- Assessment
Renal Function: Stable
WBC's are: Trending Down
In the past 24 hrs, patient has been: Afebrile
Concomitant Antimicrobials: levofloxacin 500 mg Q24H
- Dosing Plan
Continue: vancomycin 1000mg Q12h
- Monitoring Plan
Peak Level: 5.8 @ 2100
Trough Level: 5.9 @ 0530
- Follow Up
Pharmacy will continue to follow.
Vancomycin Follow UP
- -
Patient Age: 73
Patient Sex: Male
Vancomycin Day #: 3
Indication: Other
Requesting Provider: Susan Valadez
Pertinent Antimicrobial Allergies:
cefuroxime - unknown
Height / Weight:
Height 5 ft 7 in
Actual Weight 88.649 kg
Pertinent Past Medical History: BMI ~31.5, DM 2
- Vital Signs / Lab Results
Temp Pulse Resp BP Pulse Ox
98.5 F 67 14 171/79 98
08/06/24 07:00 08/06/24 07:00 08/06/24 07:00 08/06/24 07:00 08/06/24 07:00
Lab Results - Hematology
08/03/24 08/04/24 08/05/24
14:10 06:01 07:48
WBC 5.1 3.2 L 4.5 L
08/06/24
05:51
WBC 4.4 L
Lab Results - Chemistry
08/03/24 08/04/24 08/05/24
14:10 06:00 07:48
BUN 15 10 12
Creatinine 0.9 0.8 0.9
Estimated Creat Clear 89 78
Albumin 4.1
08/03/24 08/03/24
20:04 23:00
Lactic Acid 0.9 Cancelled
Microbiology Results
08/03/24 20:04 Blood Culture - Preliminary
Blood/Venous No Growth in 48 hours- Final report to follow
08/03/24 20:04 Blood Culture - Preliminary
Blood/Venous No Growth in 48 hours- Final report to follow
08/04/24 08:54 MRSA Screen - Final
Nose No Methicillin Resistant Staphylococcus aureus isolated.
08/03/24 20:04 Urine Culture - Final
Urine NO GROWTH
[2024-08-06] MEDS: NOVOLOG FLEXPEN-LOW RESISTANCE 1 UNITS SC (08:55)
[2024-08-06 09:02] LABS: Glucose - Point of Care 172 mg/dl (70-99)
--- NOTE | 2024-08-06 10:38 | CM ---
Patient seen bedside.
Patient for d/c home today.
IMM reviewed.
Spouse to transport.
PLan: home no needs.
--- NOTE | 2024-08-06 11:38 | W.DCSUMMARY ---
Discharge Summary
Discharge Data
Date of Admission: 08/03/24
Date of Discharge: 08/06/24
-
Pending Results: No
Hospital Course
Presented with fever unclear as to cause blood cultures negative. Urine analysis and urine culture negative. Chest x-ray without evidence of pneumonia. CT abdomen pelvis report as below. Though the report does show concerns finding for cystitis
which could be a bladder infection urine analysis and urine culture were negative therefore this is not consistent with bladder infection which could be cystitis as reported. Could be chronic urinary outlet obstruction and will need outpatient
urology follow-up. There was also evidence of hepatic steatosis and splenomegaly. Liver test were unremarkable. B12 was 7 folate greater than 20. Hepatitis panel negative. Outpatient hepatology follow-up for MRI elastography/FibroScan with GI.
Pancytopenia that is chronic evaluated by hematology reviewed and compared to outpatient labs recommended continued outpatient follow-up with primary detective narcotics and vice at this time. After initiating antibiotics no further fevers therefore we will full
7-day course of levofloxacin and doxycycline. Do not do any strenuous physical activity/marathons/agility walking while taking levofloxacin and up to 4 weeks after stopping levofloxacin. If symptoms recur return to hospital. Follow-up with PCP GI
and hematology
CXR
IMPRESSION:
1. No radiographic evidence for pneumonia.
2. Mild elevation of the anterior right hemidiaphragm.
Abdominal CT
1. Mild diffuse thickening of the urinary bladder wall and mild urinary distention (either cystitis or chronic urinary bladder outlet obstruction).
2. Mild retroperitoneal edema around the ureters which could be secondary to ascending urinary tract infection.
3. Minimal ascites.
4. Mild to moderate diffuse hepatic steatosis.
5. Mild hepatomegaly.
6. Moderate splenomegaly.
7. Previous cholecystectomy.
8. Mild to moderate colonic diverticulosis.
9. Severe discogenic degenerative disease at L3/L4.
10. Severe bilateral facet joint arthrosis at L5/S1.
Discharge Plan
-
Patient Disposition: Home (Routine Discharge)
Discharge Diagnosis/Procedures: Fever
Condition: Good
Diet: As tolerated, Low Fat, Low Cholesterol and 2 Gram Sodium
Activity: As tolerated
Activity Restrictions/Additional Instructions:
73-year-old with past medical history for hypertension, hyperlipidemia, type 2 diabetes, asthma
Presented with fever unclear as to cause blood cultures negative. Urine analysis and urine culture negative. Chest x-ray without evidence of pneumonia. CT abdomen pelvis report as below. Though the report does show concerns finding for cystitis
which could be a bladder infection urine analysis and urine culture were negative therefore this is not consistent with bladder infection which could be cystitis as reported. Could be chronic urinary outlet obstruction and will need outpatient
urology follow-up. There was also evidence of hepatic steatosis and splenomegaly. Liver test were unremarkable. B12 was 7 folate greater than 20. Hepatitis panel negative. Outpatient hepatology follow-up for MRI elastography/FibroScan with GI.
Pancytopenia that is chronic evaluated by hematology reviewed and compared to outpatient labs recommended continued outpatient follow-up with primary detective narcotics and vice at this time. After initiating antibiotics no further fevers therefore we will full
7-day course of levofloxacin and doxycycline. Do not do any strenuous physical activity/marathons/agility walking while taking levofloxacin and up to 4 weeks after stopping levofloxacin. If symptoms recur return to hospital. Follow-up with PCP GI
and hematology
CXR
IMPRESSION:
1. No radiographic evidence for pneumonia.
2. Mild elevation of the anterior right hemidiaphragm.
Abdominal CT
1. Mild diffuse thickening of the urinary bladder wall and mild urinary distention (either cystitis or chronic urinary bladder outlet obstruction).
2. Mild retroperitoneal edema around the ureters which could be secondary to ascending urinary tract infection.
3. Minimal ascites.
4. Mild to moderate diffuse hepatic steatosis.
5. Mild hepatomegaly.
6. Moderate splenomegaly.
7. Previous cholecystectomy.
8. Mild to moderate colonic diverticulosis.
9. Severe discogenic degenerative disease at L3/L4.
10. Severe bilateral facet joint arthrosis at L5/S1.
Referrals:
Melonie George MD [Active] - in two to three weeks
Michael Kendall MD [Active] - in two to three weeks
Moreno Mahmood MD [Family Provider] -
Prescriptions:
New
doxycycline hyclate 100 mg capsule
100 mg PO BID 5 Days Qty: 10 0RF
levofloxacin 750 mg tablet
750 mg PO Q24H 5 Days Qty: 5 0RF
Continued
metformin 500 mg Tablet
500 mg PO BID
carvedilol 25 mg Tablet
25 mg PO BID
atorvastatin 20 mg Tablet
20 mg PO HS
sertraline 100 mg Tablet
200 mg PO DAILY
amlodipine 10 mg Tablet
10 mg PO DAILY
hydralazine 100 mg Tablet
100 mg PO TID
montelukast 10 mg Tablet
10 mg PO HS
valsartan-hydrochlorothiazide 320-25 mg Tablet
1 tab PO DAILY
omeprazole 20 mg Tablet,Delayed Release (Dr/Ec)
20 mg PO DAILY
celecoxib [Celebrex] 200 mg Capsule
200 mg PO DAILYPRN PRN (Reason: mild pain)
acetaminophen [Tylenol] 325 mg Tablet
650 mg PO Q6HPRN PRN (Reason: mild pain)
therapeutic multivitamin Tablet
1 tab PO DAILY
ascorbic acid (vitamin C) [Vitamin C] 500 mg Tablet
500 mg PO DAILY
ibuprofen [Advil] 200 mg Tablet
400 mg PO Q8HPRN PRN (Reason: fever)
terazosin 10 mg Capsule
10 mg PO DAILY
ezetimibe [Zetia] 10 mg Tablet
10 mg PO HS
calcium carbonate-vitamin D3 [Calcium 500 + D] 500 mg-10 mcg (400 unit) Tablet
1 tab PO DAILY
budesonide-formoterol [Symbicort] 160-4.5 mcg/actuation Hfa Aerosol Inhaler
2 puff INHALATION R BID
omega 0-rmt-ckx-fish oil [Fish Oil] 1,000 (120-180) mg Capsule
1 cap PO DAILY
Discharge Orders:
Discharge Patient (As Directed); Ordered 08/06/24
Ordered By: Zafar Chilel
Discharge Date and Time
Discharge Date/Time: 08/06/24 11:06
Print Language: [id number]
--- NOTE | 2024-08-06 11:42 | W.PN.HOSP.TC ---
Today's Communication/Plan
-
Assessment / Plan
Assessment / Plan
Fever, unclear etiology, unable to identify source, no further fevers though on antibiotics.
Could be infectious being bacterial versus viral. Blood cultures urine culture pending.
Flu negative. COVID-negative
Could be something more insidious process such as hematologic malignancy as he is thrombocytopenic and splenomegaly though there is evidence of hepatic steatosis with mild ascites.
Follows with outpatient kids activities coach unclear as to why states for anemia however then tells me he may require IVIG
Bicytopenia with normocytic anemia and thrombocytopenia
Do not have outpatient labs to review to see if this is an acute finding or chronic
Check peripheral smear, B12 folate hep C
No evidence of a protein gap to suspect multiple myeloma however this does not rule out MGUS in a patient who is older than 65 with bicytopenia
Hepatic steatosis with splenomegaly
Outpatient GI follow-up would likely benefit from FibroScan study/MR Elastography
Diabetes
Accu-Chek sliding scale hold metformin carb controlled diet goal blood glucose 140-180
Hypertension
Continue antihypertensive
Hypokalemia
Replete prn
Hyponatremia
Encourage po intake
BPH
Continue terazosin
Asthma
Continue montelukast and inhalers
Hyperlipidemia
Continue Zetia statin
Cleared for discharge unable to perform physical exam as he was not in the hospital
Anticipated Discharge: Today
Subjective/Interval History
-
Date of Service: August 06, 2024
He left before I could see him even though in the discharge order I put in my discharge order to discharge patient once I see him
Objective Data
-
Labs:
Laboratory Results
08/06/24
05:51
WBC 4.4 L
Hgb 10.7 L
Hct 28.9 L
Plt Count 118 L
Vital Signs:
Vital Signs
Temp Pulse Resp BP Pulse Ox
98.5 F 67 14 171/79 98
08/06/24 07:00 08/06/24 07:00 08/06/24 07:00 08/06/24 07:00 08/06/24 07:00
I&O
08/05/24 08/06/24 08/07/24
06:59 06:59 06:59
Intake Total 880 / 880 1280 / 1280
Balance 880 / 880 1280 / 1280
[2024-08-06 12:11] LABS: Lyme Antibody Screen, EIA Negative (Negative)
[2024-08-06 19:07] LABS: Hepatitis C Antibody Negative (Negative)
== END 2024-08-06 11:06 | disposition home or self-care (01) | DRG 868 ==
LOC: 1 ACUTE 23:41
PROVIDERS: Physician Assistant; Registered Nurse; Student in an Organized Health Care Education/Training Program; ADMITTING PHYSICIAN Hospitalist; ATTENDING PHYSICIAN Hospitalist; CONSULT PHYSICIAN Internal Medicine Hematology & Oncology; EMERGENCY PHYSICIAN Emergency Medicine; FAMILY PHYSICIAN Family Medicine
DX: A49.9 Bacterial infection, unspecified (principal); D61.818 Other pancytopenia; R18.8 Other ascites; E87.1 Hypo-osmolality and hyponatremia; R50.9 Fever, unspecified; N30.90 Cystitis, unspecified without hematuria; R60.0 Localized edema; K76.0 Fatty (change of) liver, not elsewhere classified; Z90.49 Acquired absence of other specified parts of digestive tract; K57.30 Diverticulosis of large intestine without perforation or abscess without bleeding; M47.817 Spondylosis without myelopathy or radiculopathy, lumbosacral region; E78.5 Hyperlipidemia, unspecified; J45.909 Unspecified asthma, uncomplicated; I10 Essential (primary) hypertension; E11.42 Type 2 diabetes mellitus with diabetic polyneuropathy; Z79.84 Long term (current) use of oral hypoglycemic drugs; K21.9 Gastro-esophageal reflux disease without esophagitis; K22.70 Barrett's esophagus without dysplasia; F32.A Depression, unspecified; G47.33 Obstructive sleep apnea (adult) (pediatric); E11.65 Type 2 diabetes mellitus with hyperglycemia; E87.6 Hypokalemia; K59.00 Constipation, unspecified; Z79.51 Long term (current) use of inhaled steroids; Z79.899 Other long term (current) drug therapy; Z87.11 Personal history of peptic ulcer disease; Z11.52 Encounter for screening for COVID-19
CPT/HCPCS: 71046; 74177; 80048; 80053; 81003; 81015; 82607; 82746; 82962; 83036; 83605; 83690; 84443; 85025; 85027; 86618; 86704; 86706; 86708; 86803; 87040; 87070; 87086; 87502; 87811; 93005; 96360; 99285; Q9967

== ENCOUNTER → 2024-10-26 08:26 | Outpatient (REF) | payer MEDICARE, SELFPAY | LOC: MRI 08:26 | PROVIDERS: ATTENDING PHYSICIAN Physician Assistant; OTHER PHYSICIAN Internal Medicine Hematology & Oncology; REFERRING PHYSICIAN Internal Medicine Gastroenterology | DX: R16.0 Hepatomegaly, not elsewhere classified (principal); R16.1 Splenomegaly, not elsewhere classified | CPT/HCPCS: 74183; 76391; A9575 ==